=== PATIENT | female | born 1990 | race Caucasian/White ===

== ENCOUNTER 2018-04-14 16:30 | Emergency (ER) | payer BC, SELFPAY ==
--- NOTE | 2018-04-14 18:51 | RAD ---
SINGLE VIEW OF THE PELVIS 04/14/18 COMPARISON: None. HISTORY: Fall with right hip pain. FINDINGS: Single view of the pelvis shows lucency overlying the right parasymphyseal aspect of the pelvis. Thes e could represent air in the rectum but a fracture in this location is also a possibility. No other fractures or dislocations are seen. IMPRESSION: Possible right parasymphyseal pelvic fracture. POS: C
--- NOTE | 2018-04-14 18:52 | RAD ---
TWO VIEWS OF THE RIGHT HIP: 04/14/18 COMPARISON: None. HISTORY: Fall with right hip pain. FINDINGS: Two views of the right hip shows no evidence of fracture or dislocation of the femur. There is a luce ncy seen extending through the parasymphyseal region of the pelvis on the right which could represent a nondisplaced fracture. The pubic symphysis is unremarkable. No other pelvic fractures are seen. IMPRESSION: Possible parasymphyseal right pelvic fracture. POS: C
--- NOTE | 2018-04-14 18:53 | RAD ---
THREE VIEWS LUMBOSACRAL SPINE: 04/14/18 COMPARISON: None. HISTORY: Low back pain after fall. FINDINGS: Three views lumbosacral spine shows normal height and alignment of the vertebral bodies and intervert ebral discs without fracture or subluxation. No degenerative changes are seen. IMPRESSION: Unremarkable exam. POS: C
[2018-04-14 19:14] LABS: #Eosinphils 0.3 thou/uL (0.0-0.7); #Lymphocytes 2.4 thou/uL (1.20-3.40); #Monocytes 0.6 thou/uL (0.11-0.59); #Neutrophils 7.1 thou/uL (1.40-6.50); %Basophils 0.5 % (0.0-1.0); %Eosinophils 2.8 % (0.0-10.0); %Lymphocytes 22.7 % (21.0-51.0); %Monocytes 6.1 % (0.0-10.0); Hemoglobin 13.1 g/dL (12.0-16.0); Mean Corpuscular HGB CONC 34.2 g/dL (32.0-36.0); Mean Corpuscular Hemoglobin 30.6 pg (27.0-31.0); Mean Corpuscular Volume 89.2 fL (78.0-98.0); Mean Platelet Volume 6.7 fL (7.4-10.4); Platelet Count 301 thou/uL (130-400); RBC Distribution Width 11.7 % (11.5-14.5); Red Blood Cell (RBC) Count 4.28 mill/uL (4.20-5.40); White Blood Cell (WBC) Count 10.4 thou/uL (4.8-10.8)
[2018-04-14 19:20] LABS: BHCG - Serum Negative (NEGATIVE); Pregs Control Background? CLEAR/WHITE (CLR/WHITE); Pregs Control Bar Appear? YES (CONTROL BAR)
[2018-04-14 19:36] LABS: ALT (SGPT) 12 U/L (8-55); AST (SGOT) 14 U/L (5-34); Albumin 4.2 g/dL (3.5-5.0); Alkaline Phosphatase 76 U/L (40-150); Anion Gap 15 mmol/L (10-20); BUN (Urea Nitrogen) 12 mg/dL (7.0-18.7); Bilirubin, Total 0.4 mg/dL (0.2-1.2); Calc. Creatinine Clearance 0 mL/min (70-130); Carbon Dioxide 23 mmol/L (22-29); Chloride 105 mmol/L (98-107); Estimated GFR-MDRD 78; Globulin 3.5 g/dL (2.4-3.5); Glucose 96 mg/dL (70-105); Potassium 3.5 mmol/L (3.5-5.1); Protein, Total 7.7 g/dL (6.0-8.3); Sodium 139 mmol/L (136-145)
[2018-04-14 20:07] LABS: Bilirubin Negative (Negative); Blood, Urine Negative (Negative); Clarity CLOUDY (Clear); Glucose, Urine (Dipstick) Negative (Negative); Leukocyte Negative (Negative); Nitrite Negative (Negative); Protein, Urine (Dipstick) Negative (Neg-Trace); Urobilinogen 0.2 mg/dL (0.2-1.0); pH, Urine 5.5 (5.0-9.0)
[2018-04-14] MEDS ORDERED: diphenhydrAMINE 50 MG/ML VIAL ONE (20:39)
--- NOTE | 2018-04-14 21:13 | CT ---
CT PELVIS WITH IV CONTRAST 04/14/18 HISTORY: Pelvic fracture. Patient fell from a roof on Thursday and landed on right hip. FINDINGS: There is a nondisplaced fracture involving the right sacral ala. There is no abnormal widening of the sacroiliac joints bilaterally. Fracture in the right sacral does extend into the S1 neural foramen. There is a minimally fracture involving the right inferior pubic ramus at the junction with the pubic bone. No additional fracture is appreciated. There is no abnormal widening of the pubic sy mphysis. No fracture or dislocation is seen involving either hip. No free fluid or fluid collection is seen in the pelvis. The urinary bladder is decompressed but othe rwise grossly normal in appearance. The uterus and adnexal structures have a normal appearance for pa tient's age. The appendix is visualized and normal in caliber. No joint effusion is seen involving either hip. IMPRESSION: 1. Nondisplaced fracture involving the right sacral ala with extension of the fracture into the region of the S1 neural foramen. 2. Mildly fracture involving the right inferior pubic ramus at the junction with the r ight pubic bone. 3. No evidence of a fracture or dislocation involving either hip. 4. Minimal stranding /trace amount of fluid in the right lower hemipelvis. POS: [facility]
== END 2018-04-14 20:55 | disposition home or self-care (01) ==
LOC: ERS 16:30
DX: S32.591A Other specified fracture of right pubis, initial encounter for closed fracture (principal); S32.10XA Unspecified fracture of sacrum, initial encounter for closed fracture; Z79.899 Other long term (current) drug therapy; W17.89XA Other fall from one level to another, initial encounter
CPT/HCPCS: 36415; 72100; 72170; 72193; 80053; 81003; 84703; 85025; 96374; J1200